=== PATIENT | male | born 1970 | race Caucasian/White ===

== ENCOUNTER 2017-05-23 08:30 | Day surgery (SDC) | payer OTHER ==
[~2017-05-23] VITALS: Ht 177.8 cm; Wt 115.7 kg
[~2017-05-23 08:30] MED LIST: FLOMAX0.4 MG PO; MULTIVITAMIN1 EAC1 PO; PERCOCET 5/31 TABLET PO; PHENTERMINE HCL30 MG PO; VENTOLIN HFA18 GM IH; VENTOLIN17 GM IH; ZANAFLEX4 MG PO
[2017-05-23 09:09] VITALS: BP 124/78
[2017-05-23 12:35] VITALS: BP 110/71
[2017-05-23 13:30] VITALS: BP 118/74
== END 2017-05-23 14:00 | disposition home or self-care (01) ==
LOC: SDC 08:30
PROC: 0SBD4ZZ Excision of Left Knee Joint, Percutaneous Endoscopic Approach (ICD-10-PCS; principal; 2017-05-23)
DX: S83.232A Complex tear of medial meniscus, current injury, left knee, initial encounter (principal); M17.12 Unilateral primary osteoarthritis, left knee; J45.909 Unspecified asthma, uncomplicated; Z82.49 Family history of ischemic heart disease and other diseases of the circulatory system; Z88.0 Allergy status to penicillin; Z88.1 Allergy status to other antibiotic agents; Z88.2 Allergy status to sulfonamides; Z88.8 Allergy status to other drugs, medicaments and biological substances
CPT/HCPCS: J0131; J1100; J1170; J2250; J2405; J2795; J3010